=== PATIENT | male | born 2000 | race Two or more races ===

== ENCOUNTER 2023-11-08 13:23 | Emergency (ER) | payer OTHER ==
[~2023-11-08] VITALS: Ht 165.1 cm; Wt 70.3 kg
== END 2023-11-08 17:32 | disposition home or self-care (01) ==
LOC: ER 13:24
DX: S01.411A Laceration without foreign body of right cheek and temporomandibular area, initial encounter (principal); X58.XXXA Exposure to other specified factors, initial encounter; Y93.89 Activity, other specified; Y92.89 Other specified places as the place of occurrence of the external cause; Y99.8 Other external cause status